=== PATIENT | female | born 1985 | race Two or more races ===

== ENCOUNTER → 2017-04-25 | Outpatient (CLI) | payer OTHER, SELFPAY ==
[~2017-04-25] MED LIST: IBUP800 PO
== END | disposition home or self-care (01) ==
LOC: LAB SHORT 07:43 → PLD 07:43
DX: D22.5 Melanocytic nevi of trunk (principal)
CPT/HCPCS: 88305

== ENCOUNTER → 2018-03-27 | Outpatient (CLI) | payer OTHER ==
[2018-03-29 15:08] LABS: HPV 16 Negative (Negative); HPV 18 Negative (Negative); HPV OTHER HR TYPES Negative (Negative)
== END | disposition home or self-care (01) ==
LOC: LAB 12:00 → LAB SHORT 12:00
PROVIDERS: Obstetrics & Gynecology
DX: Z01.419 Encounter for gynecological examination (general) (routine) without abnormal findings (principal)
CPT/HCPCS: 87624; G0123

== ENCOUNTER 2020-01-09 22:49 | Inpatient (IN) | payer BC ==
[~2020-01-09] VITALS: Ht 165.1 cm; Wt 72.6 kg
[2020-01-09 23:29] LABS: BASOPHILS ABSOLUTE AUTO 0.04 K/mm3 (0.00-0.23); BASOPHILS PERCENT AUTO 0 % (0-2); EOSINOPHILS PERCENT AUTO 0 % (0-6); Hematocrit 31.3 % (33.0-51.0); Hemoglobin 10.4 g/dL (11.5-16.0); IMMATURE GRAN ABSOLUTE AUTO 0.14 K/mm3 (0.00-0.10); IMMATURE GRAN PERCENT AUTO 1 % (0-1); LYMPHOCYTES ABSOLUTE AUTO 1.77 K/mm3 (0.84-5.20); LYMPHOCYTES PERCENT AUTO 10 % (21-46); MONOCYTES ABSOLUTE AUTO 0.61 K/mm3 (0.16-1.47); MONOCYTES PERCENT AUTO 4 % (4-13); Mean Corpuscular HGB Conc 33.2 g/dL (31.5-36.5); Mean Corpuscular Volume 93 fL (80-100); Mean Platelet Volume 8.7 fL (9.1-12.4); NEUTROPHILS ABSOLUTE AUTO 14.68 K/mm3 (1.96-9.15); NEUTROPHILS PERCENT AUTO 85 % (41-73); Platelet Count 346 K/mm3 (150-400); RDW Coefficient Variation 12.9 % (11.7-14.2); RDW Standard Deviation 44.4 fL (35.1-46.3); Red Blood Cell Count 3.35 M/mm3 (3.80-5.20); White Blood Cell Count 17.24 K/mm3 (4.00-11.30)
[2020-01-09] MEDS ORDERED: PRENATAL TABLE1 EAC2 PO (23:31)
[2020-01-10 00:03] LABS: Alanine Aminotransfer (ALT/SGP 21 U/L (12-78); Albumin, Blood 3.6 g/dL (3.4-5.0); Albumin/Globulin Ratio 1.1 (0.8-1.8); Alk Phos 72 U/L (50-136); Anion Gap 10 mmol/L (6-16); Aspartate Aminotrans (AST/SGOT 6 U/L (12-37); Bilirubin, Total 0.4 mg/dL (0.1-1.0); Blood Urea Nitrogen 11 mg/dL (8-24); Bun/Creatinine Ratio 15.8 (12.0-20.0); CO2, Blood 21 mmol/L (21-32); Calcium, Blood 8.7 mg/dL (8.5-10.1); Chloride, Blood 104 mmol/L (98-108); Globulin, Blood 3.2 g/dL (2.2-4.0); Glomerular Filtration Rate >60 (60-); Glucose, Blood 234 mg/dL (70-99); Magnesium, Blood 1.6 mg/dL (1.6-2.4); Potassium, Blood 3.9 mmol/L (3.5-5.5); Sodium, Blood 135 mmol/L (136-145); Total Protein, Blood 6.8 g/dL (6.4-8.2)
[2020-01-10 00:11] LABS: Beta HCG, Quantitative, Serum 12606 mIU/mL (0-3)
[2020-01-10 00:20] LABS: Fibrinogen 257 mg/dL (170-430); International Normalized Ratio 1.04; Prothrombin Time Results 11.1 Sec (9.7-11.5)
--- NOTE | 2020-01-10 02:26 | NUR ---
PT TO ICU 16 FROM OR WITH ORAL AIRWAY IN. AFEBRILE. SHIVERING. 2PIV-PATENT. LR INFUSING. 1U PRBCS STARTED. NO ADVERSE REACTIONS THUS FAR. KHADAR REMOVED IN OR. WILL CONTINUE TO MONITOR
[2020-01-10 03:21] LABS: BASOPHILS ABSOLUTE AUTO 0.01 K/mm3 (0.00-0.23); BASOPHILS PERCENT AUTO 0 % (0-2); EOSINOPHILS PERCENT AUTO 0 % (0-6); Hematocrit 24.7 % (33.0-51.0); Hemoglobin 8.4 g/dL (11.5-16.0); IMMATURE GRAN PERCENT AUTO 1 % (0-1); LYMPHOCYTES ABSOLUTE AUTO 0.95 K/mm3 (0.84-5.20); LYMPHOCYTES PERCENT AUTO 7 % (21-46); MONOCYTES ABSOLUTE AUTO 0.61 K/mm3 (0.16-1.47); MONOCYTES PERCENT AUTO 5 % (4-13); Mean Corpuscular HGB 30.4 pg (26.0-34.0); Mean Corpuscular Volume 90 fL (80-100); Mean Platelet Volume 8.5 fL (9.1-12.4); NEUTROPHILS ABSOLUTE AUTO 11.09 K/mm3 (1.96-9.15); NEUTROPHILS PERCENT AUTO 87 % (41-73); Platelet Count 183 K/mm3 (150-400); RDW Coefficient Variation 14.1 % (11.7-14.2); RDW Standard Deviation 46.2 fL (35.1-46.3); Red Blood Cell Count 2.76 M/mm3 (3.80-5.20); White Blood Cell Count 12.76 K/mm3 (4.00-11.30)
--- NOTE | 2020-01-10 03:37 | NUR ---
REPORT GIVEN TO JACK GAMING RN ON SURGICAL FLOOR
--- NOTE | 2020-01-10 03:59 | NUR ---
ARRIVES TO ROOM S/P LAP RIGHT SALPINGECTOMY AND EVAC HEMOPERITONEUM. PT ARRIVES DROWSY BUT AWAKE. STATES PAIN IS MINIMAL NO N/V. TRANSFERED TO BED. HAS 3 LAP SITES WITH SCANT SS DRAINAGE. NO VAG BLEEDING. RUBALCAVA WAS DC'D IN OR, NO VOID YET. PT RECEIVED 2 UNITS PRBCS AND 1 UNIT FFP ACCOUNT COORDINATOR. LR STARTED AT 150ML. BP STILL SLIGHTLY HYPO AND HR SLIGHTY TACHY. WILL MONITOR VS CLOSELY.
--- NOTE | 2020-01-10 06:04 | NUR ---
STILL POD 0 S/P LAP RIGHT SALPINGECTOMY WITH EVACUATION OF HEMOPERITONEUM. PT IS DOING WELL THIS MORNING. SHES AWAKE AND EATING APPLESAUCE AND DRINKING WATER. HAVING A LITTLE MORE PAIN THIS MORNING, MEDICATED WITH ONE OXYCODONE. STILL NO VAG BLEEDING AND NO MORE BLEEDING FROM LAP SITES. PT STILL HAS NOT GOTTEN OOB YET, PT STILL DROWSY AND WANTS TO REST A LITTLE MORE. IVF INFUSING, CONT PULSE OX IN PLACE. WILL REPORT OFF TO NEXT SHIFT.
--- NOTE | 2020-01-10 09:06 | NUR ---
PT UP TO BATHROOM SBA. PT VOID 50ML, BLADDER SCAN APROX 250. WILL HAVE PT ATTEMPT AGAIN IN APROX 1HR.
[2020-01-10] MEDS ORDERED: ACET325 PO (09:25)
[2020-01-10] MEDS ORDERED: DOCU100 PO (09:26)
[2020-01-10] MEDS ORDERED: OXAYDO5 M1 PO (09:26)
[2020-01-10 10:04] LABS: BASOPHILS ABSOLUTE AUTO 0.01 K/mm3 (0.00-0.23); BASOPHILS PERCENT AUTO 0 % (0-2); EOSINOPHILS ABSOLUTE AUTO 0.02 K/mm3 (0.00-0.68); EOSINOPHILS PERCENT AUTO 0 % (0-6); Hematocrit 20.2 % (33.0-51.0); IMMATURE GRAN ABSOLUTE AUTO 0.05 K/mm3 (0.00-0.10); IMMATURE GRAN PERCENT AUTO 1 % (0-1); LYMPHOCYTES ABSOLUTE AUTO 2.02 K/mm3 (0.84-5.20); LYMPHOCYTES PERCENT AUTO 21 % (21-46); MONOCYTES ABSOLUTE AUTO 0.87 K/mm3 (0.16-1.47); MONOCYTES PERCENT AUTO 9 % (4-13); Mean Corpuscular HGB 31.1 pg (26.0-34.0); Mean Corpuscular HGB Conc 34.7 g/dL (31.5-36.5); Mean Corpuscular Volume 90 fL (80-100); Mean Platelet Volume 8.9 fL (9.1-12.4); NEUTROPHILS ABSOLUTE AUTO 6.81 K/mm3 (1.96-9.15); NEUTROPHILS PERCENT AUTO 70 % (41-73); Platelet Count 171 K/mm3 (150-400); RDW Standard Deviation 49.4 fL (35.1-46.3); Red Blood Cell Count 2.25 M/mm3 (3.80-5.20); White Blood Cell Count 9.78 K/mm3 (4.00-11.30)
[2020-01-10 14:15] LABS: BASOPHILS ABSOLUTE AUTO 0.02 K/mm3 (0.00-0.23); BASOPHILS PERCENT AUTO 0 % (0-2); EOSINOPHILS ABSOLUTE AUTO 0.02 K/mm3 (0.00-0.68); EOSINOPHILS PERCENT AUTO 0 % (0-6); Hematocrit 21.6 % (33.0-51.0); Hemoglobin 7.1 g/dL (11.5-16.0); IMMATURE GRAN ABSOLUTE AUTO 0.06 K/mm3 (0.00-0.10); IMMATURE GRAN PERCENT AUTO 1 % (0-1); LYMPHOCYTES ABSOLUTE AUTO 2.96 K/mm3 (0.84-5.20); LYMPHOCYTES PERCENT AUTO 27 % (21-46); MONOCYTES ABSOLUTE AUTO 0.88 K/mm3 (0.16-1.47); MONOCYTES PERCENT AUTO 8 % (4-13); Mean Corpuscular HGB 29.7 pg (26.0-34.0); Mean Corpuscular HGB Conc 32.9 g/dL (31.5-36.5); Mean Corpuscular Volume 90 fL (80-100); Mean Platelet Volume 8.7 fL (9.1-12.4); NEUTROPHILS ABSOLUTE AUTO 7.08 K/mm3 (1.96-9.15); NEUTROPHILS PERCENT AUTO 64 % (41-73); Platelet Count 181 K/mm3 (150-400); RDW Coefficient Variation 15.1 % (11.7-14.2); RDW Standard Deviation 50.5 fL (35.1-46.3); Red Blood Cell Count 2.39 M/mm3 (3.80-5.20); White Blood Cell Count 11.02 K/mm3 (4.00-11.30)
--- NOTE | 2020-01-10 17:38 | NUR ---
SHIFT SUMMARY PT CONTINUES TO FEEL "WOOZY/HOT" WHEN SHE AMBULATES, DENIES FEELING DIZZY WITH AMBULATION. PT TAKING IN CLEAR LIQUIDS WITH NO C/O N/V, HAS NOT HAD AN APPETITE FOR REGULAR DIET T/O SHIFT. PT IS CURRENTLY RECIEVING 1 UNIT PRBC, IF PT IS FEELING BETTER FOLLOWING TRANSFUSION SHE WILL DISCHARGE HOME. FILLED RX FOR PAIN MEDICATION. PAIN MANAGED WITH PO MEDICATION. VOIDING.
[2020-01-10 21:02] LABS: Hematocrit 22.5 % (33.0-51.0); Hemoglobin 7.4 g/dL (11.5-16.0)
--- NOTE | 2020-01-11 00:47 | NUR ---
PT RESTING VS NOTED. PT CURRENTLY RESTING IN BED, AWOKE EASILY REPORTING MILD JACOBS. TORADOL GIVEN PER ORDERS. ENCOURAGED PO INTAKE TOLERATED. PT DENIES FURTHER NEEDS. REPORT TO TAOV MCNEAL AT THIS TIME. CALL LIGHT WITHIN PT'S REACH.
[2020-01-11 04:48] LABS: BASOPHILS ABSOLUTE AUTO 0.02 K/mm3 (0.00-0.23); BASOPHILS PERCENT AUTO 0 % (0-2); EOSINOPHILS ABSOLUTE AUTO 0.04 K/mm3 (0.00-0.68); EOSINOPHILS PERCENT AUTO 0 % (0-6); Hematocrit 21.7 % (33.0-51.0); Hemoglobin 7.2 g/dL (11.5-16.0); IMMATURE GRAN ABSOLUTE AUTO 0.06 K/mm3 (0.00-0.10); IMMATURE GRAN PERCENT AUTO 1 % (0-1); LYMPHOCYTES ABSOLUTE AUTO 2.79 K/mm3 (0.84-5.20); LYMPHOCYTES PERCENT AUTO 28 % (21-46); MONOCYTES ABSOLUTE AUTO 0.59 K/mm3 (0.16-1.47); MONOCYTES PERCENT AUTO 6 % (4-13); Mean Corpuscular HGB 30.4 pg (26.0-34.0); Mean Corpuscular HGB Conc 33.2 g/dL (31.5-36.5); Mean Corpuscular Volume 92 fL (80-100); Mean Platelet Volume 8.8 fL (9.1-12.4); NEUTROPHILS ABSOLUTE AUTO 6.54 K/mm3 (1.96-9.15); NEUTROPHILS PERCENT AUTO 65 % (41-73); Platelet Count 154 K/mm3 (150-400); RDW Coefficient Variation 14.7 % (11.7-14.2); RDW Standard Deviation 49.8 fL (35.1-46.3); Red Blood Cell Count 2.37 M/mm3 (3.80-5.20); White Blood Cell Count 10.04 K/mm3 (4.00-11.30)
--- NOTE | 2020-01-11 06:38 | NUR ---
SHIFT SUMMARY: CELIA IS A&OX4. HER HEART RATE INCREASES APPROX 20 POINTS ON MOVEMENT AND AMBULATION THROUGHOUT THE NIGHT. URINE MALODOROUS AND CLOUDY. PT COMPLAINS OF A HEADACHE FOR WHICH PHARMACOLOGIC INTERVENTIONS HAVE BEEN MINIMALLY EFFECTIVE. SHE IS TOLERATING SMALL AMOUNTS OF PO. HGB 7.2 THIS AM. IV TO BILATERAL ACs PATENT. SHE IS ABLE TO MAKE HER NEEDS KNOWN. CONTINUOUS BIOX IN PLACE. ABDOMEN SOFT, NONTENDER, NONDISTENDED. SHE IS LYING IN BED WITH HER CALL LIGHT IN REACH. WILL REPORT TO DAY SHIFT RN.
[2020-01-11 07:39] LABS: Source, Urine Clean Catch
[2020-01-11 07:45] LABS: Appearance, Urine Hazy (Clear); Bilirubin, Urine Neg (Neg); Blood, Urine 2+ (Neg); Color, Urine Yellow (P-Yellow); Glucose Qualitative, Urine Neg (Neg); Ketones, Urine Neg (Neg); Leukocyte Esterase, Urine 3+ (Neg); Nitrite, Urine Neg (Neg); Protein, Urine 1+ (Neg); Urobilinogen, Urine NORM (Normal)
[2020-01-11 07:55] LABS: Bacteria Many /hpf; Squamous Epithelial Cells Rare /hpf (Few); White Blood Cells, Urine TNTC /hpf (0-5)
[2020-01-11 13:54] LABS: BASOPHILS ABSOLUTE AUTO 0.03 K/mm3 (0.00-0.23); BASOPHILS PERCENT AUTO 0 % (0-2); EOSINOPHILS ABSOLUTE AUTO 0.04 K/mm3 (0.00-0.68); EOSINOPHILS PERCENT AUTO 0 % (0-6); Hematocrit 23.5 % (33.0-51.0); Hemoglobin 7.9 g/dL (11.5-16.0); IMMATURE GRAN ABSOLUTE AUTO 0.06 K/mm3 (0.00-0.10); IMMATURE GRAN PERCENT AUTO 1 % (0-1); LYMPHOCYTES ABSOLUTE AUTO 3.24 K/mm3 (0.84-5.20); LYMPHOCYTES PERCENT AUTO 30 % (21-46); MONOCYTES ABSOLUTE AUTO 0.67 K/mm3 (0.16-1.47); MONOCYTES PERCENT AUTO 6 % (4-13); Mean Corpuscular HGB 30.4 pg (26.0-34.0); Mean Corpuscular HGB Conc 33.6 g/dL (31.5-36.5); Mean Corpuscular Volume 90 fL (80-100); Mean Platelet Volume 8.8 fL (9.1-12.4); NEUTROPHILS ABSOLUTE AUTO 6.92 K/mm3 (1.96-9.15); NEUTROPHILS PERCENT AUTO 63 % (41-73); Platelet Count 146 K/mm3 (150-400); RDW Coefficient Variation 14.8 % (11.7-14.2); RDW Standard Deviation 49.1 fL (35.1-46.3); White Blood Cell Count 10.96 K/mm3 (4.00-11.30)
--- NOTE | 2020-01-11 18:23 | NUR ---
SHIFT SUMMARY PT HAS SHOWN IMPROVEMENT THIS AFTEROON. REPORTS THAT SHE "FEELS BETTER" "LESS WOOZY" WITH AMBULATION. PT IS USING IS. PAIN MANAGED PER EMAR (NO NARCOTICS). 1 UNIT PRBC TRANSFUSED WELL IRON IVP. VOIDING. TOLERATING SMALL AMOUNTS PO WITH NO N/V. POSSIBLE DC HOME TOMORROW.
--- NOTE | 2020-01-12 04:33 | NUR ---
SHIFT SUMMARY: RUPTURED EPTOPIC POD 2 PATIENT IS ALERT AND ORIENTED X4 WHEN AWAKE. SHE HAS BEEN SLEEPING MAJORITY OF THE SHIFT BUT HAS BEEN EASILY AROUSABLE. URINE DURING DAYSHIFT YESTERDAY WAS CLOUDY AND SENT FOR CULTURES. HER X3 LAP SITES ON ABD HAVE DRIED UP BLOOD BUT ARE INTACT. PT DIDN'T REPORT PAIN THROUGHOUT SHIFT. HER ABD IS SOFT, NONTENDER, AND NONDISTENDED. SHE REPORTS PASSING GAS. SHE IS INDEPENDENT THE ROOM. CALL APPROPRIATELY. CALL LIGHT WITHIN REACH. THE PLAN IS TO POSSIBLY HAVE PATIENT ON ABX IF URINE CULTURES COME BACK WITH BACTERIA. IF EVERYTHING IS STABLE POSSIBLY MIGHT D/C HOME. WILL REPORT TO DAYSHIFT RN.
--- NOTE | 2020-01-12 13:12 | NUR ---
discharged DC IVS, CATHETERS INTACT. REVIEWED DC PAPERWORK, PT VERBALIZED UNDERSTANDING. SPOUSE STATED PICKED UP PAIN SCRIPTS ALREADY. PT LEFT UNIT IN WC ACCOMPANIED BY SPOUSE W/POSSESSIONS AND DC PAPERWORK IN HAND.
== END 2020-01-12 13:10 | disposition home or self-care (01) | DRG 817 ==
LOC: ER 22:49 → SURS 01-10 00:06
PROVIDERS: Emergency Medicine; Obstetrics & Gynecology; ADMIT Obstetrics & Gynecology
PROC: 10T24ZZ Resection of Products of Conception, Ectopic, Percutaneous Endoscopic Approach (ICD-10-PCS; principal; 2020-01-10)
PROC: 0UT54ZZ Resection of Right Fallopian Tube, Percutaneous Endoscopic Approach (ICD-10-PCS; 2020-01-10)
PROC: 30233N1 Transfusion of Nonautologous Red Blood Cells into Peripheral Vein, Percutaneous Approach (ICD-10-PCS; 2020-01-10)
DX: O00.101 Right tubal pregnancy without intrauterine pregnancy (principal); K66.1 Hemoperitoneum; D62 Acute posthemorrhagic anemia; I10 Essential (primary) hypertension; R50.82 Postprocedural fever; R00.0 Tachycardia, unspecified
CPT/HCPCS: 36415; 36430; 80053; 81001; 83605; 83735; 84702; 85014; 85018; 85025; 85384; 85610; 85730; 86850; 86900; 86901; 86923; 87077; 87086; 87186; 88305; 94762; 96361; 96374; 96375; 99285-25; A9270; J0330; J1170; J1885; J2250; J2370; J2405; J2704; J2710; J2916; J3010; J7030; J7040; J7120; P9016; P9059; U0004

== ENCOUNTER → 2021-11-03 | Outpatient (CLI) | payer BC ==
[~2021-11-03] MED LIST changes: +ACET325 PO; +DOCU100 PO; +OXAYDO5 M1 PO; +PRENATAL TABLE1 EAC2 PO
[2021-11-05 07:10] LABS: HPV 16 Negative (Negative); HPV 18 Negative (Negative); HPV OTHER HR TYPES Negative (Negative)
== END ==
LOC: LAB 13:46 → LAB SHORT 13:46
PROVIDERS: Obstetrics & Gynecology
DX: Z01.419 Encounter for gynecological examination (general) (routine) without abnormal findings (principal)
CPT/HCPCS: 87624; G0123

== ENCOUNTER → 2023-02-22 | Outpatient (CLI) | payer BC ==
[2023-02-22 17:07] LABS: Source, Urine Clean Catch
[2023-02-22 18:13] LABS: Appearance, Urine Clear (Clear); Bilirubin, Urine Neg (Neg); Blood, Urine Neg (Neg); Glucose Qualitative, Urine Neg (Neg); Ketones, Urine Neg (Neg); Leukocyte Esterase, Urine Neg (Neg); Nitrite, Urine Neg (Neg); Protein, Urine Neg (Neg); Specific Gravity, Urine 1.005 (1.003-1.022); Urobilinogen, Urine NORM (Normal)
[2023-02-22 18:24] LABS: Color, Urine Pale Yellow (P-Yellow)
== END ==
LOC: LAB 17:06 → LAB SHORT 17:06
PROVIDERS: Obstetrics & Gynecology
DX: R30.0 Dysuria (principal)
CPT/HCPCS: 81003